=== PATIENT | male | born 1940 | race Caucasian/White ===

== ENCOUNTER → 2020-09-01 | Outpatient (CLI) | payer MEDICARE ==
[~2020-09-01] MED LIST: FINA5TAB4 PO; LOVA40TA2 PO; TERA2CAP3 PO
== END | disposition home or self-care (01) ==
LOC: STAR 11:28
PROVIDERS: ATTEND Surgery
DX: Z01.812 Encounter for preprocedural laboratory examination (principal); Z20.828 Contact with and (suspected) exposure to other viral communicable diseases; K40.91 Unilateral inguinal hernia, without obstruction or gangrene, recurrent; I25.2 Old myocardial infarction; R94.31 Abnormal electrocardiogram [ECG] [EKG]
CPT/HCPCS: 87635; 93005

== ENCOUNTER → 2020-09-29 | Outpatient (CLI) | payer MEDICARE, OTHER | END | disposition home or self-care (01) | LOC: STAR 11:57 | PROVIDERS: ATTEND Surgery | DX: Z01.818 Encounter for other preprocedural examination (principal); K40.91 Unilateral inguinal hernia, without obstruction or gangrene, recurrent; I25.2 Old myocardial infarction; Z20.822 Contact with and (suspected) exposure to COVID-19 | CPT/HCPCS: 87635; 93005 ==

== ENCOUNTER 2020-10-05 12:04 | Day surgery (SDC) | payer MEDICARE, OTHER ==
[~2020-10-05] VITALS: Ht 170.2 cm; Wt 68.9 kg
[~2020-10-05 12:04] MED LIST changes: +BUPIVACAINE/PF 0.5% ONE; +EPINEPHRINE 1 MG/ML, 1ML ONE
[2020-10-05] MEDS ORDERED: CHLORHEXIDINE 15 ML UDC ONE (12:47)
[2020-10-05 13:06] VITALS: BP 129/79
[2020-10-05] MEDS ORDERED: LACTATED RINGERS 1,000 ML IV SCH (13:30)
[2020-10-05] MEDS ORDERED: CHLORHEXIDINE 15 ML UDC MM ONE (13:30)
[2020-10-05] MEDS ORDERED: LIDOCAINE-MPF 2% ,5ML ONE (13:50)
[2020-10-05] MEDS ORDERED: ROCURONIUM 10MG/ML,5ML ONE (13:50)
[2020-10-05] MEDS ORDERED: FENTANYL PF 100 MCG/2ML ONE (13:50)
[2020-10-05] MEDS ORDERED: PROPOFOL 10 MG/ML, 20ML ONE (13:50)
[2020-10-05] MEDS ORDERED: EPHEDRINE 50 MG/ML, 1ML ONE (14:00)
[2020-10-05] MEDS ORDERED: DEXAMETHASONE 4 MG/ML, 1ML ONE (14:00)
[2020-10-05] MEDS ORDERED: CEFAZOLIN 1,000 MG ONE ×2 (14:10)
[2020-10-05] MEDS ORDERED: ACETAMINOPHEN 325 MG TABLET PO PRN (14:30)
[2020-10-05] MEDS ORDERED: FENTANYL PF 100 MCG/2ML IV PRN (14:30)
[2020-10-05] MEDS ORDERED: ONDANSETRON 2MG/ML, 2ML IVPush PRN (14:30)
[2020-10-05] MEDS ORDERED: KETOROLAC 30 MG/1 ML ONE (14:52)
[2020-10-05] MEDS ORDERED: ONDANSETRON 2MG/ML, 2ML ONE ×2 (14:52)
[2020-10-05] MEDS ORDERED: SUGAMMADEX 200 MG/2 ML IVPush ONE (14:53)
== END 2020-10-05 18:35 | disposition home or self-care (01) ==
LOC: OUT 12:04
PROVIDERS: ATTEND Surgery
DX: K40.91 Unilateral inguinal hernia, without obstruction or gangrene, recurrent (principal); E78.5 Hyperlipidemia, unspecified; N40.0 Benign prostatic hyperplasia without lower urinary tract symptoms; Z79.899 Other long term (current) drug therapy; Z88.5 Allergy status to narcotic agent; Z88.8 Allergy status to other drugs, medicaments and biological substances
CPT/HCPCS: 49651; C1781; J0171; J0690; J1100; J1885; J2405; J2704; J3010; J7120